=== PATIENT | male | born 1980 | race Caucasian/White ===

== ENCOUNTER 2019-10-28 00:02 | Inpatient (IN) | payer MEDICAID ==
[~2019-10-28] VITALS: Ht 167.6 cm; Wt 81.3 kg
[2019-10-28] MEDS ORDERED: LIDOCAINE VISCOUS 2% UD 15 ML UDC ONE (00:21)
[2019-10-28] MEDS ORDERED: MAG HYDROX/AL HYDROX/SIMETH 30 ML UDC ONE (00:21)
[2019-10-28 00:30] LABS: BASOPHILS # (AUTO) 0.2 /CMM (0.0-0.2); EOSINOPHILS % (AUTO) 2.9 % (0.0-6.0); HEMATOCRIT 49 % (39-51); HEMOGLOBIN 16.7 g/dL (13.5-17.5); LYMPHOCYTES # (AUTO) 3.9 /CMM (0.8-4.8); LYMPHOCYTES % (AUTO) 24.8 % (20.0-44.0); MEAN CORPUSCULAR HGB CONC 34 g/dl (31.0-36.0); MEAN CORPUSCULAR VOLUME 86 fL (80-96); MONOCYTES # (AUTO) 0.8 /CMM (0.1-1.30); NEUTROPHILS # (AUTO) 10.4 /CMM (1.8-8.9); NEUTROPHILS % (AUTO) 66.3 % (43.0-81.0); PLATELET COUNT (AUTO) 358 /CMM (150-450); RED BLOOD CELL COUNT(AUTO) 5.73 MIL/uL (4.5-6.0); WHITE BLOOD COUNT (AUTO) 15.8 K/uL (4.3-11.0)
[2019-10-28] MEDS ORDERED: MORPHINE SULFATE INJ 2 MG/ML DISP.SYRIN IV ONE (00:30)
[2019-10-28] MEDS ORDERED: IV NS 0.9% 1,000 ML BAG IV ONE (00:30)
[2019-10-28] MEDS ORDERED: FAMOTIDINE/PF INJ 20 MG/2 ML VIAL IV ONE ×2 (00:30→00:44)
[2019-10-28] MEDS ORDERED: ONDANSETRON HCL/PF 4 MG/2 ML VIAL IVP ONE (00:30)
[2019-10-28] MEDS ORDERED: LIDOCAINE VISCOUS 2% UD 15 ML UDC MM ONE (00:30)
[2019-10-28] MEDS ORDERED: MAG HYDROX/AL HYDROX/SIMETH 30 ML UDC PO ONE (00:30)
[2019-10-28 00:38] LABS: CALCIUM, SERUM 8.8 mg/dL (8.5-10.1); CARBON DIOXIDE 29 mmol/L (21-32); CHLORIDE 101 mmol/L (98-107); GLUCOSE 229 mg/dL (74-106); SODIUM SERUM 139 mmol/L (136-145); UREA NITROGEN, BLOOD 15 mg/dL (7-18)
--- NOTE | 2019-10-28 00:41 | NUR ---
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 DENIES NAUSEA. PATIENT STATES THAT HE VOMITED WHEN HE DRANK TEA ABOUT 2 HOURS GO. AAOX4. NO SOB. BREATHING EVENLY AND UNLABORED ON ROOM AIR. CONNECTED TO MONITOR.
[2019-10-28] MEDS ORDERED: MORPHINE SULFATE INJ 4 MG/ML DISP.SYRIN ONE (00:43)
[2019-10-28] MEDS ORDERED: ONDANSETRON HCL/PF 4 MG/2 ML VIAL ONE (00:43)
[2019-10-28 00:53] LABS: ALANINE AMINOTRANSFERASE 29 U/L (12-78); ALBUMIN 4.1 g/dL (3.4-5.0); ALKALINE PHOSPHATASE 75 U/L (46-116); ASPARTATE AMINOTRANSFERASE 16 U/L (15-37); BILIRUBIN,DIRECT 0.1 mg/dL (0.0-0.2); BILIRUBIN,TOTAL 0.2 mg/dL (0.2-1.0); LIPASE 101 U/L (73-393); TOTAL PROTEIN, SERUM 7.4 g/dL (6.4-8.2)
[2019-10-28] MEDS ORDERED: POTASSIUM CHLORIDE 20 MEQ TAB.PRT.SR PO ONE ×2 (01:27→01:30)
[2019-10-28] MEDS ORDERED: KETOROLAC TROMETHAMINE INJ 30 MG/ML VIAL IV ONE (01:30)
[2019-10-28] MEDS ORDERED: CEFOXITIN 1 G in IV NS 0.9% 50 ML IV SCH ×2 (01:30→10:00)
[2019-10-28] MEDS ORDERED: CEFOXITIN 1 G VIAL ONE (01:34)
--- NOTE | 2019-10-28 01:54 | NUR ---
DR CARSON PAGED PER DR KELLY
--- NOTE | 2019-10-28 02:28 | NUR ---
REPORT GIVEN TO GILMAR LOPEZ FOR CURRY.
[2019-10-28] MEDS ORDERED: ZOLPIDEM TARTRATE 5 MG TABLET PO PRN (02:30)
[2019-10-28] MEDS ORDERED: ACETAMINOPHEN 325 MG TABLET PO PRN (02:30)
[2019-10-28] MEDS ORDERED: MAG HYDROX/AL HYDROX/SIMETH 30 ML UDC PO PRN (02:30)
[2019-10-28] MEDS ORDERED: ONDANSETRON HCL/PF 4 MG/2 ML VIAL IVP PRN (02:30)
[2019-10-28] MEDS ORDERED: MAGNESIUM HYDROXIDE 30 ML UDC PO PRN (02:30)
[2019-10-28] MEDS ORDERED: Z GUARD REMEDY 2 OZ OINT TP PRN (02:30)
[2019-10-28] MEDS ORDERED: HYDROCODONE/APAP 5/325MG 1 EACH TABLET PO PRN (02:30)
[2019-10-28 02:45] VITALS: BP 105/64
--- NOTE | 2019-10-28 02:45 | NUR ---
MS RN NOTES PATIENT ARRIVED TO THE UNIT VIA GURNEY. ALERT AND ORIENTED X 4. PATIENT ON ROOM AIR WITH NO SIGNS OF RESPIRATORY DISTRESS, NO SIGNS OF SOB NOTED, AND WITH EVEN NON-LABORED BREATHING. PATIENT SKIN WARM, DRY TO TOUCH, AND INTACT. IV ACCESS ON RIGHT AC, 18 GAUGE SALINE LOCK. PATIENT BELONGINGS PLACED NEXT TO PATIENT BEDSIDE. DENIES ANY NAUSEA AND NO VOMITING PRESENT. PATIENT STATING MORE COMFORTABLE AND DENIES PAIN AT THIS TIME. SAFETY PRECAUTIONS IN PLACE WITH BED LOCKED, BED IN THE LOWEST POSITION AND BILATERAL SIDE RAILS UP. WILL CONTINUE TO MONITOR PATIENT.
--- NOTE | 2019-10-28 02:49 | NUR ---
PATIENT TAKEN UP TO ADMISSION.
[2019-10-28] MEDS ORDERED: ZOSYN IVPB 3.375 G in IV D5W 50ml IV ONE (03:00)
[2019-10-28] MEDS ORDERED: PIPERACILLIN /TAZOBACTAM 3.375 G VIAL IV ONE (03:16)
[2019-10-28] MEDS ORDERED: PIPERACILLIN /TAZOBACTAM 3.375 G in IV D5W 50 ML IV SCH (06:00)
--- NOTE | 2019-10-28 06:30 | NUR ---
MS RN NOTES PATIENT IN BED RESTING COMFORTABLY, ON ROOM AIR WITH NO SIGNS OF RESPIRATORY DISTRESS, NO SIGNS OF SOB, AND WITH EVEN NON-LABORED BREATHING. MET ALL OF PATIENT NEEDS AND PROVIDED COMFORT MEASURES TO PATIENT. DENIES PAIN OR DISCOMFORT AT THIS TIME. IV ACCESS INTACT AND PATENT. SAFETY PRECAUTIONS IN PLACE WITH BED LOCKED, BILATERAL SIDE RAILS UP, BED IN THE LOWEST POSITION, AND CALL LIGHT WITHIN EASY REACH OF THE PATIENT. WILL ENDORSE PLAN OF CARE TO UPCOMING DAYSHIFT NURSE.
--- NOTE | 2019-10-28 07:30 | NUR ---
received pt. this am alert and oriented x4.npo.no complaints offered.
[2019-10-28] MEDS: PIPERACILLIN /TAZOBACTAM 3.375 G in IV D5W 100 ML IV SCH ×2 (09:03→17:18)
[2019-10-28 09:04] VITALS: BP 121/79
--- NOTE | 2019-10-28 13:27 | NUR ---
NM: HIDA SCAN WAS COMPLETED. TECH:RB
--- NOTE | 2019-10-28 16:39 | NUR ---
down to radiology x2 for hida scan.
[2019-10-28 16:56] VITALS: BP 109/68
[2019-10-28] MEDS: IV NS 0.9% 1,000 ML IV SCH (18:36)
--- NOTE | 2019-10-28 19:00 | NUR ---
PT. REFUSED TO SIGN CONSENT WITHOUT MORE INFORMATION,ALICIA OAKES.
--- NOTE | 2019-10-28 19:40 | NUR ---
MS RN OPENING NOTES RECEIVED PATIENT RESTING IN BED COMFORTABLY; A/OX4; ARABIC SPEAKER; BREATHING EVEN AND UNLABORED; PATIENT TOLERATING ROOM AIR WELL; NO SOB NOTED; NO DISTRESS NOTED; NPO STATUS MAINTAINED FOR POSSIBLE PROCEDURE TOMORROW; PER AM SHIFT; PATIENT STILL NEEDED MORE TIME TO THINK PRIOR TO SIGNING CONSENT; WILL F/U WITH PATIENT; R AC #18 INTACT AND PATENT; INFUSING NS @ 75ML/HR; SAFETY PRECAUTIONS IMPLEMENTED; BED LOCKED IN LOW POSITION; SIDE RAILS X2; CALL LIGHT WITHIN REACH; WILL CONT TO MONITOR
[2019-10-28 20:00] VITALS: BP 115/75
--- NOTE | 2019-10-28 20:28 | NUR ---
MS RN NOTES SPOKE WITH DR. MILLER REGARDING PATIENT; PATIENT NPO AFTER MIDNIGHT AND CAN HAVE CLD FOR TIME BEING; PER DR. MILLER IF PATIENT DOES NOT SIGN OFF ON CONSENT TONIGHT, HE WILL HAVE MORE TIME TO SIGN OFF TOMORROW WITH HIM; WILL INFORM DAY SHIFT; WILL CONT TO MONITOR
[2019-10-29] VITALS (11 sets, daily range): BP systolic 101–116; BP diastolic 50–75
--- NOTE | 2019-10-29 | NUR ---
MS RN NOTES PATIENT NPO; PATIENT RESTING IN BED COMFORTABLY; SLEEPING, AWAKENS EASILY; NO SOB NOTED; BREATHING EVEN AND UNLABORED; WILL CONT TO MONITOR
[2019-10-29] MEDS: PIPERACILLIN /TAZOBACTAM 3.375 G in IV D5W 100 ML IV SCH ×2 (00:05→08:07)
--- NOTE | 2019-10-29 03:00 | NUR ---
MS RN NOTES URINE SAMPLE COLLECTED VIA CLEAN CATCH; LAB INFORMED; PATIENT VERBALIZED HE WOULD LIKE TO SPEAK TO DR. MILLER PRIOR TO SIGNING OFF ON CONSENT FOR PROCEDURE IN THE AFTERNOON; PATIENT WOULD LIKE TO KNOW MORE INFORMATION ABOUT THE PROCEDURE AND HIS DIAGNOSIS; DR. MILLER AWARE OF PATIENTS NEEDS; WILL INFORM DAY SHIFT NURSE; WILL CONT TO MONITOR
[2019-10-29 03:15] LABS: APPEARANCE,URINE CLEAR (CLEAR); BILIRUBIN,URINE NEGATIVE (NEGATIVE); BLOOD, URINE TRACE-INTA Ery/uL (NEGATIVE); COLOR,URINE YELLOW (YELLOW); KETONES,URINE NEGATIVE (NEGATIVE); LEUKOCYTE ESTERASE ,URINE NEGATIVE (NEGATIVE); NITRITE, URINE NEGATIVE (NEGATIVE); PROTEIN,URINE NEGATIVE (NEGATIVE); UGLUCOSE NEGATIVE (NEGATIVE); UROBILINOGEN,URINE 0.2 EU/dL (0.2)
[2019-10-29 03:26] LABS: BACTERIA,URINE Rare /HPF (None Seen); SQUAMOUS EPITHELIAL CELL,UR Rare /HPF (None Seen); WBC,URINE 0-2 /HPF (0-3)
[2019-10-29 06:28] LABS: CALCIUM, SERUM 8.7 mg/dL (8.5-10.1); MAGNESIUM 2.2 mg/dL (1.8-2.4); PHOSPHORUS 2.7 mg/dL (2.5-4.9); POTASSIUM 4.3 mmol/L (3.5-5.1)
--- NOTE | 2019-10-29 06:28 | NUR ---
MS RN CLOSING NOTES PATIENT RESTING IN BED COMFORTABLY; A/OX4; BREATHING EVEN AND UNLABORED; NO SOB NOTED; PATIENT TOLERATING ROOM AIR WELL; NPO STATUS MAINTAINED; R AC #18 INFUSING NS @ 75ML/HR; PATIENT TOLERATING INFUSION WELL; NO S/S OF REDNESS OR INFILTRATION NOTED; ALL NEEDS RENDERED; PATIENT ABLE TO MAKE NEEDS KNOWN; PATIENT WILL SPEAK TO DR. MILLER REGARDING PROCEDURE TODAY; DR. MILLER ALSO AWARE OF PATIENT CONCERNS; WILL INFORM ONCOMING SHIFT; SAFETY PRECAUTIONS IMPLEMENTED; BED LOCKED IN LOW POSITION; SIDE RAILS X2; CALL LIGHT WITHIN REACH; WILL ENDORSE CURRY TO ONCOMING SHIFT
[2019-10-29 06:35] LABS: BASOPHILS % (AUTO) 0.2 % (0.0-2.0); EOSINOPHILS % (AUTO) 0.4 % (0.0-6.0); HEMATOCRIT 51 % (39-51); HEMOGLOBIN 17.1 g/dL (13.5-17.5); LYMPHOCYTES # (AUTO) 2.2 /CMM (0.8-4.8); LYMPHOCYTES % (AUTO) 11.8 % (20.0-44.0); MEAN CORPUSCULAR HGB CONC 34 g/dl (31.0-36.0); MEAN CORPUSCULAR VOLUME 87 fL (80-96); MONOCYTES # (AUTO) 1.4 /CMM (0.1-1.30); MONOCYTES % (AUTO) 7.4 % (2.0-12.0); NEUTROPHILS # (AUTO) 14.7 /CMM (1.8-8.9); NEUTROPHILS % (AUTO) 80.2 % (43.0-81.0); PLATELET COUNT (AUTO) 290 /CMM (150-450); RED BLOOD CELL COUNT(AUTO) 5.88 MIL/uL (4.5-6.0); WHITE BLOOD COUNT (AUTO) 18.4 K/uL (4.3-11.0)
--- NOTE | 2019-10-29 07:30 | NUR ---
MS/RN Opening note Patient received from bottomer operator. A/O X4, vital signs stable, no fevers, denies pain. NPO for surgery later today. IV fluids infusing at 75ml/hr, no signs of infiltration seen. All needs and concerns addressed, safety measures in place. Will continue to monitor and ensure safety.
[2019-10-29] MEDS: IV NS 0.9% 1,000 ML IV SCH (08:00)
--- NOTE | 2019-10-29 08:48 | NUR ---
MS/RN S/B Dr Scott Seen BY MD - procedure explained to patient including all possible side effects. Consent forms signed and placed in front of chart.
--- NOTE | 2019-10-29 10:32 | NUR ---
MS/RN S/B Dr Rivas Seen by Gelacio Rivas - gorge for tomorrow, surgery as planned.
--- NOTE | 2019-10-29 12:28 | NUR ---
MS/certified nurse practitioner Patient taken to operating room for laparoscopic cholecystectomy, chart with patient.
[2019-10-29] MEDS ORDERED: ANESTHESIA TRAY IN PYXIS 1 EA TRAY MC ONE (12:52)
[2019-10-29] MEDS ORDERED: BUPIVACAINE MPF 0.5% W/EPI INJ 30 ML VIAL ONE (12:53)
[2019-10-29] MEDS ORDERED: FENTANYL PF 100MCG/2ML AMPUL ONE (14:02)
--- NOTE | 2019-10-29 14:52 | NUR ---
MS/RN Back from OR Patient back from operating room following laparoscopic cholecystomy. Lap sites X4, all clean and dry. KAYE drain with minimal output. Vital signs recorded as per hospital protocol, all within normal range. IVF infusing as ordered (D51/2 NS 20K) at 75ml/hr, pain level currently 3/10. called and updated, made aware that surgery was successful and uneventful. Call light within reach, will continue to monitor and ensure safety.
[2019-10-29] MEDS ORDERED: MORPHINE SULFATE INJ 2 MG/ML DISP.SYRIN IV PRN (15:00)
[2019-10-29] MEDS ORDERED: IV D5/0.45 NACL W/20 MEQ KCL 1L IV PRN ×2 (15:00)
--- NOTE | 2019-10-29 18:14 | NUR ---
MS/RN End note Post operatively stable, vital signs stable, lap sites 4 with dry, clean and intact dressings. KAYE drain with 20ml drainage. Tolerating regular diet, no nausea or vomiting, IV fluids infusing at 75ml, no signs of infiltration seen. Will endorse to manager shift.
--- NOTE | 2019-10-29 19:30 | NUR ---
MS RN OPENING NOTES PATIENT RECEIVED RESTING IN BED COMFORTABLY; A/OX4; BREATHING EVEN AND UNLABORED; NO SOB NOTED; PATIENT TOLERATING ROOM AIR WELL; NO DISTRESS NOTED; PATIENT REPORTED ROOM FEELS WARM, PER AM SHIFT, TECH INFORMED REGARDING PATIENT ROOM AND WILL TRY TO FIX THIS PM; R AC #18 INTACT AND PATENT INFUSING D51/2NS C 20 KCL @ 75ML/HR; PATIENT TOLERATING IVF WELL; KAYE DRAIN ATTACHED, PATIENT S/P LAP NIDHI; PATIENT DENIES PAIN; SAFETY PRECAUTIONS IMPLEMENTED; BED LOCKED IN LOW POSITION; SIDE RAILS X2; CALL LIGHT WITHIN REACH; WILL CONT TO MONITOR
[2019-10-29] MEDS: ANCEF 1 GM/50 ML D5W IV SCH ×2 (20:01)
--- NOTE | 2019-10-30 03:09 | NUR ---
MS RN NOTES PATIENT REQUESTED TO USE THE BATHROOM AND WALK AROUND THE UNIT; WILL CONT TO MONITOR; PATIENT STEADY, A/OX4 AND DENIES PAIN;
[2019-10-30] MEDS: ANCEF 1 GM/50 ML D5W IV SCH ×4 (04:00→14:19)
[2019-10-30 06:39] LABS: HEMATOCRIT 48 % (39-51); HEMOGLOBIN 16.2 g/dL (13.5-17.5); LYMPHOCYTES # (AUTO) 1.2 /CMM (0.8-4.8); MEAN CORPUSCULAR HGB CONC 34 g/dl (31.0-36.0); MEAN CORPUSCULAR VOLUME 87 fL (80-96); MONOCYTES # (AUTO) 1.1 /CMM (0.1-1.30); MONOCYTES % (AUTO) 4.7 % (2.0-12.0); NEUTROPHILS # (AUTO) 21.1 /CMM (1.8-8.9); NEUTROPHILS % (AUTO) 90.3 % (43.0-81.0); PLATELET COUNT (AUTO) 303 /CMM (150-450); WHITE BLOOD COUNT (AUTO) 23.4 K/uL (4.3-11.0)
[2019-10-30 06:47] LABS: ALBUMIN 3.3 g/dL (3.4-5.0); BILIRUBIN,TOTAL 0.3 mg/dL (0.2-1.0); CALCIUM, SERUM 8.9 mg/dL (8.5-10.1); CREATININE 0.9 mg/dL (0.6-1.3); POTASSIUM 4.3 mmol/L (3.5-5.1); TOTAL PROTEIN, SERUM 7.5 g/dL (6.4-8.2)
--- NOTE | 2019-10-30 06:49 | NUR ---
MS RN CLOSING NOTES PATIENT RESTING IN BED COMFORTABLY; A/OX4; BREATHING EVEN AND UNLABORED; NO SOB NOTED; PATIENT TOLERATING ROOM AIR WELL; NO DISTRESS AND NO PAIN NOTED; R AC #18 INFUSING D51/2 NS @ 75ML/HR; TOLERATING IVF WELL; KAYE DRAIN APPROX 10CC; ALL NEEDS RENDERED; PATIENT ABLE TO MAKE NEEDS KNOWN; SAFETY PRECAUTIONS IMPLEMENTED; BED LOCKED IN LOW POSITION; SIDE RAILS X2; CALL LIGHT WITHIN REACH; WILL ENDORSE CURRY TO ONCOMING SHIFT
--- NOTE | 2019-10-30 07:35 | NUR ---
MS/RN NOTE THE PATIENT IS RECEIVED IN BED. PATIENT IS ALERT AND ORIENTED X4. IN ROOM AIR AND DENIES SOB. RESPIRATION REGULAR AND UNLABORED. PATIENT IS NOTED WITH ABDOMINAL SURGICAL INCISIONS WITH DRESSINGS AND KAYE DRAIN. ABDOMEN DISTENDED BUT SOFT TO TOUCH. RAC G 18 PATENT AND D2 1/2 NS WITH 20 KCL INFUSING AT 75ML/HR AND NO S/S INFILTRATION NOTED. BED LOW AND LOCKED. SIDE RAILS UP X3. CALL LIGHT WITHIN REACH. WILL CONTINUE TO MONITOR.
[2019-10-30 08:37] VITALS: BP 121/66
[2019-10-30] MEDS ORDERED: PANT40TA2 PO (12:09)
[2019-10-30] MEDS ORDERED: IBUP-1955 PO (12:09)
[2019-10-30] MEDS ORDERED: CEPH-570 PO (12:09)
--- NOTE | 2019-10-30 15:00 | NUR ---
MS/RN NOTE THE PATIENT IS ALERT AND ORIENTED X4. IN ROOM AIR AND DENIES SOB. RESPIRATION REGULAR AND UNLABORED. OXYGEN SATURATION IN ROOM AIR IS AT 99%. DENIES PAIN. THE PATIENT IN NO APPARENT DISTRESS. DISCHARGE EDUCATION WAS PROVIDED AND HE VERBALIZED UNDERSTANDING. THE PATIENT GOT PICKED UP BY HIS DAUGHTER VIA PRIVATE CAR.
--- NOTE | 2019-10-30 16:30 | NUR ---
MS/RN NOTE RECEIVED CALL FROM THE PATIENT`S DAUGHTER AND WAS MADE AWARE THAT THE PREFERRED PHARMACY IS CLOSED AND IS NOT KNOWN WHEN WILL IT BE OPENED AND IT MIGHT NOT BE OPEN IN THE UPCOMING DAYS. PER CHARGE NURSE PER DNP CESARIO HORN CALLED IN THE PRESCRIPTIONS TO NEW PREFERRED PHARMACY..
== END 2019-10-30 15:00 | disposition home or self-care (01) | DRG 263 ==
LOC: ER 00:05 → MED 02:12
PROVIDERS: ADMIT Nurse Practitioner Acute Care; ATTEND Nurse Practitioner Acute Care
PROC: 0FT44ZZ Resection of Gallbladder, Percutaneous Endoscopic Approach (ICD-10-PCS; principal; 2019-10-29)
DX: K81.0 Acute cholecystitis (principal); D72.829 Elevated white blood cell count, unspecified; E87.6 Hypokalemia; Z83.3 Family history of diabetes mellitus
CPT/HCPCS: 36415; 76705-TC; 78226; 80048-TC; 80053-TC; 80061-TC; 80076-TC; 81000-TC; 83690-TC; 83735-TC; 84100-TC; 84484-TC; 85025-TC; 85610-TC; 85730-TC; 86850-TC; 87081-TC; 88304-TC; A4216; A9537; G0378; J0690; J0694; J1100; J1885; J2270; J2405; J2543; J2710; J3010; J3480; J3490; J7030; J7050; J7060

== ENCOUNTER 2019-11-16 18:35 | Emergency (ER) | payer MEDICAID ==
[~2019-11-16] VITALS: Ht 167.6 cm; Wt 81.6 kg
[~2019-11-16 18:35] MED LIST: CEPH-570 PO; IBUP-1955 PO; PANT40TA2 PO
[2019-11-16 18:46] VITALS: BP 115/64
--- NOTE | 2019-11-16 18:53 | NUR ---
SUTURE REMOVED BY MEERA CORDERO
--- NOTE | 2019-11-16 18:53 | NUR ---
Patient discharged to home in stable condition. Written and verbal after care instructions given. Patient verbalizes understanding of instruction.
== END 2019-11-16 18:55 | disposition home or self-care (01) ==
LOC: ER 18:40
DX: Z48.01 Encounter for change or removal of surgical wound dressing (principal); Z79.899 Other long term (current) drug therapy